=== PATIENT | female | born 1960 | race Caucasian/White ===

== ENCOUNTER → 2018-04-22 | Emergency (ER) | payer OTHER ==
[~2018-04-22] VITALS: Ht 160 cm; Wt 77.1 kg
[~2018-04-22] MED LIST: ATIVAN1 M1; LEVSIN/SL0.125 MG PO; PEPCID AC20 MG PO; SEROQUEL50 MG
== END | disposition home or self-care (01) ==
LOC: ER 17:25
DX: K63.5 Polyp of colon (principal); K62.5 Hemorrhage of anus and rectum